=== PATIENT | female | born 1945 | race Caucasian/White ===

== ENCOUNTER 2024-09-28 06:19 | Emergency (ER) | payer MEDICARE ==
[~2024-09-28] VITALS: Ht 147.3 cm; Wt 80.6 kg
[2024-09-28 06:52] VITALS: BP 195/79
[2024-09-28 06:52] LABS: BASO # 0.0 10^3/uL (0.0-0.2); BASO % 0.5 % (0.0-1.0); EOS # 0.2 10^3/uL (0.0-0.5); EOS % 2.1 % (0.0-3.0); LYMPH # 2.6 10^3/uL (1.5-5.0); LYMPH % 34.4 % (24.0-44.0); MONO # 0.8 10^3/uL (0.0-0.8); MONO % 9.9 % (2.0-8.0); NEUTROPHILS # 4.0 10^3/uL (1.5-8.5); NEUTROPHILS % 52.8 % (36.0-66.0); PLATELET COUNT, AUTOMATED 286 10^3/uL (150-450)
[2024-09-28] MEDS: NITROGLYCERIN 0.4 MG SUBL TABLET SL PRN (06:52)
[2024-09-28 07:12] LABS: CALCIUM LEVEL 9.1 MG/DL (8.3-10.6); CARBON DIOXIDE LEVEL 26.0 MMOL/L (20-31); CHLORIDE LEVEL 104.0 MMOL/L (98-107); CK-MB VALUE MASS 1.4 NG/ML (<3.6); CREATININE FOR GFR 0.91 MG/DL (0.55-1.30); GLOMERULAR FILTRATION RATE 63.4 (>32); POTASSIUM SERUM 4.2 MMOL/L (3.5-5.1); SODIUM LEVEL 142.0 MMOL/L (136-145)
[2024-09-28 07:22] LABS: CPK CREATINE PHOSPHOKINASE 58.0 U/L (34-145); MB/CK RELATIVE INDEX 2.41 (< OR =4)
[2024-09-28] MEDS ORDERED: ISOVUE-370 76% 100 ML VIAL As Ordered ONE (07:58)
[2024-09-28] MEDS ORDERED: PANT20TA6 PO (08:09)
[2024-09-28] MEDS ORDERED: ASPI81CH33 PO (08:09)
[2024-09-28] MEDS ORDERED: vitamin d3 (08:09)
[2024-09-28] MEDS ORDERED: BUPR-71 PO (08:09)
[2024-09-28] MEDS ORDERED: LOSA50TA28 PO (08:09)
[2024-09-28] MEDS ORDERED: ATOR1TAB19 PO (08:09)
[2024-09-28] MEDS ORDERED: MELO15TA28 PO (08:09)
[2024-09-28] MEDS ORDERED: B-122500 PO (08:09)
[2024-09-28] MEDS ORDERED: OXYB5TAB14 PO (08:09)
[2024-09-28] MEDS ORDERED: PRIM50TA6 PO (08:09)
[2024-09-28 08:29] LABS: CK-MB VALUE MASS 1.3 NG/ML (<3.6)
[2024-09-28 08:33] LABS: CPK CREATINE PHOSPHOKINASE 55.0 U/L (34-145); MB/CK RELATIVE INDEX 2.36 (< OR =4)
[2024-09-28] MEDS ORDERED: CHOL25TA9 PO (08:35)
[2024-09-28 08:38] LABS: ALT/SGPT 16.0 U/L (7.0-40); AST/SGOT 25.0 U/L (<34)
[2024-09-28] MEDS ORDERED: HOME MED LIST COMPLETE! XX SCH (08:40)
[2024-09-28 10:49] VITALS: BP 159/65; TEMP 97.1; O2SAT 97
== END 2024-09-28 10:49 | disposition home or self-care (01) ==
LOC: M ED 06:19
DX: R07.9 Chest pain, unspecified (principal); K80.20 Calculus of gallbladder without cholecystitis without obstruction; I10 Essential (primary) hypertension; E78.5 Hyperlipidemia, unspecified; K21.9 Gastro-esophageal reflux disease without esophagitis; G47.33 Obstructive sleep apnea (adult) (pediatric); F10.10 Alcohol abuse, uncomplicated; Z88.0 Allergy status to penicillin; Z88.2 Allergy status to sulfonamides; Z88.5 Allergy status to narcotic agent; Z88.8 Allergy status to other drugs, medicaments and biological substances; Z79.82 Long term (current) use of aspirin; Z79.02 Long term (current) use of antithrombotics/antiplatelets; Z79.899 Other long term (current) drug therapy
CPT/HCPCS: 36415; 71045; 71275; 76705; 80048; 80076; 82550; 82553; 83690; 84484; 85025; 93005; 93041; 94760; 99285; Q9967